=== PATIENT | female | born 2000 | race Caucasian/White ===

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

== ENCOUNTER 2024-11-21 05:36 | Day surgery (SDC) | payer OTHER ==
[2024-11-15 15:10] VITALS: BMI 37.9
[2024-11-21 08:36] VITALS: TEMP 98.4
[2024-11-21 09:12] VITALS: BP 102/55; PULSE 61; RESP 16
== END 2024-11-21 09:35 | disposition home or self-care (01) ==
LOC: JASU-ENDO 05:36
PROVIDERS: ATTEND Internal Medicine Gastroenterology
PROC: 0DJD8ZZ Inspection of Lower Intestinal Tract, Via Natural or Artificial Opening Endoscopic (ICD-10-PCS; principal; 2024-11-21 08:00)
DX: K64.8 Other hemorrhoids (principal)
CPT/HCPCS: 81025